=== PATIENT | male | born 1990 | race Caucasian/White ===

== ENCOUNTER 2019-05-20 07:55 | Emergency (ER) | payer SELFPAY ==
[2019-05-20] MEDS ORDERED: NA CHLORIDE 0.9% 1,000 ML ONE (08:17)
[2019-05-20 08:27] LABS: Absolute Lymphocytes (CBC) 2.4 K/uL (0.7-4.9); Basophils % 0.3 % (0-1.3); Hematocrit 47.7 % (39.6-49.0); Lymphocytes % 26.1 % (15.3-44.8); MPV 9.3 fL (7.6-11.3); RBC Red Blood Cell Count 5.72 M/uL (4.33-5.43)
[2019-05-20 08:43] LABS: ALT/SGPT 23 U/L (12-78); AST/SGOT 19 U/L (15-37); Albumin 4.3 g/dL (3.4-5.0); Alkaline Phosphatase 65 U/L (45-117); BUN Blood Urea Nitrogen 11 mg/dL (7-18); Bicarbonate 27 mmol/L (21-32); Bilirubin Direct 0.2 mg/dL (0-0.2); Bilirubin Total 0.6 mg/dL (0.2-1.0); Glucose Level 99 mg/dL (74-106); Potassium 3.3 mmol/L (3.5-5.1); Protein, Total 7.8 g/dL (6.4-8.2); Sodium Level 138 mmol/L (136-145)
--- NOTE | 2019-05-20 08:53 | EDPHYS ---
Physician Documentation [facility] Name: Yaya Hess Age: 29 yrs Sex: Male : 1990 Arrival Date: 05/20/2019 Time: 07:56 Bed 8 Private MD: PIETRO Physician Juliocesar Carson HPI: 05/19 08:08 This 29 yrs old Male presents to ER via EMS with complaints of anxoius, sabas palpitations after meth use, iv method. 08:08 The patient presents with a history of heart racing. Context: The symptoms occur after sabas iv meth use. Onset: The symptoms/episode began/occurred just prior to arrival, this morning. Duration: The patient or guardian reports a single episode, that is still ongoing, but improving. Modifying factors: The symptoms are aggravated by nothing. The symptoms are alleviated by nothing. hx of meth use iv every 3 months for 3 days at a time. Onset: The symptoms/episode began/occurred. Modifying factors: The symptoms are alleviated by nothing, the symptoms are aggravated by nothing. Associated signs and symptoms: Pertinent positives: agitation, palpitations, tingling. Historical: - Allergies: 08:05 No Known Allergies; jl7 - Home Meds: 08:05 Kratom [Active]; jl7 - PMHx: 08:05 None; jl7 - PSHx: 08:05 Left Ankle Pin Placement; jl7 - Immunization history:: Adult Immunizations not up to date. - Social history:: Smoking status: Patient reports the use of cigarette tobacco products, cigars, Patient reports use of chewing tobacco. Patient uses street drugs, marijuana, Methamphetamine (Meth) IV drugs, amphetamines. - Family history:: not pertinent. ROS: 08:08 Constitutional: Negative for fever, chills, and weight loss, Eyes: Negative for injury, sabas pain, redness, and discharge, ENT: Negative for injury, pain, and discharge, Neck: Negative for injury, pain, and swelling, Respiratory: Negative for shortness of breath, cough, wheezing, and pleuritic chest pain, Abdomen/GI: Negative for abdominal pain, nausea, vomiting, diarrhea, and constipation, Back: Negative for injury and pain, : Negative for injury, bleeding, discharge, and swelling, MS/Extremity: Negative for injury and deformity, Skin: Negative for injury, rash, and discoloration, Psych: Negative for depression, anxiety, suicide ideation, homicidal ideation, and hallucinations, Allergy/Immunology: Negative for hives, rash, and allergies, Endocrine: Negative for neck swelling, polydipsia, polyuria, polyphagia, and marked weight changes. 08:08 Cardiovascular: Positive for palpitations. 08:08 Neuro: Positive for tingling, of the right arm, left arm, right leg and left leg. Exam: 08:08 Constitutional: This is a well developed, well nourished patient who is awake, alert, sabas and in no acute distress. Head/Face: Normocephalic, atraumatic. Eyes: Pupils equal round and reactive to light, extra-ocular motions intact. Lids and lashes normal. Conjunctiva and sclera are non-icteric and not injected. Cornea within normal limits. Periorbital areas with no swelling, redness, or edema. ENT: Nares patent. No nasal discharge, no septal abnormalities noted. Tympanic membranes are normal and external auditory canals are clear. Oropharynx with no redness, swelling, or masses, exudates, or evidence of obstruction, uvula midline. Mucous membranes moist. Neck: Trachea midline, no thyromegaly or masses palpated, and no cervical lymphadenopathy. Supple, full range of motion without nuchal rigidity, or vertebral point tenderness. No Meningismus. Chest/axilla: Normal chest wall appearance and motion. Nontender with no deformity. No lesions are appreciated. Respiratory: Lungs have equal breath sounds bilaterally, clear to auscultation and percussion. No rales, rhonchi or wheezes noted. No increased work of breathing, no retractions or nasal flaring. Abdomen/GI: Soft, non-tender, with normal bowel sounds. No distension or tympany. No guarding or rebound. No evidence of tenderness throughout. Back: No spinal tenderness. No costovertebral tenderness. Full range of motion. Skin: Warm, dry with normal turgor. Normal color with no rashes, no lesions, and no evidence of cellulitis. MS/ Extremity: Pulses equal, no cyanosis. Neurovascular intact. Full, normal range of motion. Neuro: Awake and alert, GCS 15, oriented to person, place, time, and situation. Cranial nerves II-XII grossly intact. Motor strength 5/5 in all extremities. Sensory grossly intact. Cerebellar exam normal. Normal gait. Psych: Awake, alert, with orientation to person, place and time. Behavior, mood, and affect are within normal limits. 08:08 Cardiovascular: Rate: tachycardic, Rhythm: regular, Pulses: Pulses are 4+ in bilateral radial, brachial, femoral, popliteal, posterior tibial and and dorsalis pedis arteries.. Edema: is not appreciated, JVD: is not appreciated. 08:15 ECG was reviewed by the Attending Physician. sabas Vital Signs: 07:59 BP 150 / 90; Pulse 103; Resp 23 S; Temp 98.3(O); Pulse Ox 97% on R/A; Weight 81.65 kg jl7 (R); Height 5 ft. 10 in. (177.80 cm) (R); 08:57 BP 142 / 94; Pulse 91; Resp 19; Pulse Ox 97% ; jl7 07:59 Body Mass Index 25.83 (81.65 kg, 177.80 cm) jl7 NIH Stroke Scale Scores: 08:15 NIHSS Score: 0 sabas MDM: 08:07 Patient medically screened. sabas 08:12 Data reviewed: vital signs, nurses notes, lab test result(s), EKG. sabas 08:22 Differential diagnosis: arrythmia, dehydration. Differential Diagnosis altered mental sabas status. Differential diagnosis: cardiac arrhythmia, generalized weakness, hypovolemia. ED course: long hx iv meth abuse, today took 1/2 gm , possible too much per patient. heart racing and very anxious. 08:27 ED course: explained the importance of getting help and staying sober. 05/19 08:07 Order name: Acetaminophen; Complete Time: 08:50 sabas 05/19 08:07 Order name: Basic Metabolic Panel; Complete Time: 08:50 sabas 05/19 08:07 Order name: CBC with Diff; Complete Time: 08:34 05/19 08:07 Order name: ETOH Level; Complete Time: 08:34 05/19 08:07 Order name: Hepatic Function; Complete Time: 08:50 05/19 08:07 Order name: Salicylate; Complete Time: 08:44 05/19 08:07 Order name: Urine Drug Screen 05/19 08:07 Order name: EKG; Complete Time: 08:08 sabas 05/19 08:07 Order name: EKG - Nurse/Tech; Complete Time: 08:21 [facility] 05/19 08:07 Order name: IV Saline Lock; Complete Time: 08:21 [facility] 05/19 08:07 Order name: Labs collected and sent; Complete Time: 08: [facility] 05/19 09:00 Order name: Urine Dipstick--Ancillary (enter results) 05/19 08:07 Order name: Urine Dipstick-Ancillary (obtain specimen); Complete Time: 08:55 [facility] 05/19 08:51 Order name: PO challenge: juice; Complete Time: 08:59 [facility] EC: Rate is 94 beats/min. Rhythm is regular. QRS [place] is Normal. SD interval is normal. QRS sabas interval is normal. QT interval is normal. No Q waves. T waves are Normal. No ST changes noted. Administered Medications: 08:20 Drug: NS 0.9% 1000 ml Route: IV; Rate: 1 bolus; Site: right antecubital; jl7 09:26 Follow up: IV Status: Completed infusion iw 08:58 Drug: Potassium Effervescent Tablet 25 mEq Route: PO; iw 09:27 Follow up: Response: No adverse reaction iw Disposition: 05/20/19 08:52 Discharged to Home. Impression: Anxiety disorder, unspecified, Hypokalemia, Palpitations, Abuse of non-psychoactive substances. - Condition is Stable. - Discharge Instructions: Potassium Content of Foods, Palpitations, Substance Use Disorder, Stimulant Use Disorder-Methamphetamines, Palpitations, [id number], Generalized Anxiety Disorder, Hypokalemia. - Medication Reconciliation Form, Thank You Letter, Antibiotic Education, Prescription Opioid Use, Work release form form. - Follow up: Private Physician; When: 2 - 3 days; Reason: Recheck today's complaints, Continuance of care, Re-evaluation by your physician. Follow up: Eduardo Concepcion MD; When: 2 - 3 days; Reason: Recheck today's complaints, Re-evaluation by your physician. Follow up: Riaz Jasso MD; When: 2 - 3 days; Reason: Recheck today's complaints, Re-evaluation by your physician. - Problem is new. - Symptoms have improved. NIH Stroke Scale - NIH Stroke Score Date: 05/20/2019 Time: 08:15 Total Score = 0 1a. Level of Consciousness (LOC) - 0(Alert) 1b. Level of Consciousness (LOC) (Year \T\ Age) - 0(Both) 1c. LOC Commands (Open \T\ Closes Eyes/Bureau Director) - 0(Both) 2. Best Gaze (Lateral Gaze Paresis) - 0(Normal) 3. Visual Field Loss - 0(No visual loss) 4. Facial Palsy - 0(Normal) 5a. Left Arm: Motor (10-second hold) - 0(No drift) 5b. Right Arm: Motor (10-second hold) - 0(No drift) 6a. Left Leg: Motor (5-second hold - always test supine) - 0(No drift) 6b. Right Leg: Motor (5-second hold - always test supine) - 0(No drift) 7. Limb Ataxia (finger/nose \T\ heel/espino - test with eyes open) - 0(Absent) 8. Sensory Loss (pinprick arms/legs/face) - 0(Normal) 9. Best Language: Aphasia (description/naming/reading) - 0(No aphasia) 10. Dysarthria (speech clarity - read or repeat words) - 0(Normal) 11. Extinction and Inattention (visual/tactile/auditory/spatial/personal) - 0(No abnormality) Initials: [facility] Signatures: Dispatcher [employer] EDMS Juliocesar Carson MD MD cha Williams, Irene, RN RN iw Leal, Jahala, RN RN jl7 Corrections: (The following items were deleted from the chart) 08:59 08:52 05/20/2019 08:52 Discharged to Home. Impression: Anxiety disorder, sabas unspecified; Hypokalemia; Palpitations. Condition is Stable. Forms are Medication Reconciliation Form, Thank You Letter, Antibiotic Education, Prescription Opioid Use. Follow up: Private Physician; When: 2 - 3 days; Reason: Recheck today's complaints, Continuance of care, Re-evaluation by your physician. Follow up: Riaz Jasso; When: 2 - 3 days; Reason: Recheck today's complaints, Re-evaluation by your physician. Problem is new. Symptoms have improved. [facility] 09:28 08:59 05/20/2019 08:52 Discharged to Home. Impression: Anxiety disorder, iw unspecified; Hypokalemia; Palpitations; Abuse of non-psychoactive substances. Condition is Stable. Discharge Instructions: Potassium Content of Foods, Palpitations, Palpitations, [id number], Generalized Anxiety Disorder, Hypokalemia. Forms are Medication Reconciliation Form, Thank You Letter, Antibiotic Education, Prescription Opioid Use. Follow up: Private Physician; When: 2 - 3 days; Reason: Recheck today's complaints, Continuance of care, Re-evaluation by your physician. Follow up: Riaz Jasso; When: 2 - 3 days; Reason: Recheck today's complaints, Re-evaluation by your physician. Problem is new. Symptoms have improved. sabas
--- NOTE | 2019-05-20 08:53 | ER ---
Nurse's Notes [facility] Name: Yaya Hess Age: 29 yrs Sex: Male : 1990 Arrival Date: 05/20/2019 Time: 07:56 Bed 8 Private MD: Diagnosis: Anxiety disorder, unspecified;Hypokalemia;Palpitations;Abuse of non-psychoactive substances Presentation: 05/19 07:59 Chief complaint: EMS states: Pt reports he's been up on a 3 days binge of using meth jl7 IV, last used at 12 am last night and he feels like he used too much at that time, reports anxiety and SOB. Coronavirus screen: Proceed with normal triage. Patient denies a cough. Patient reports shortness of breath or difficulty breathing. Patient denies measured and/or subjective temperature greater than 100.4F prior to today's visit. Patient denies travel on a cruise ship or to a country the [facility] currently lists as an affected area. Patient denies contact with known and/or suspected case of COVID-19. Ebola Screen: No symptoms or risks identified at this time. Initial Sepsis Screen: Does the patient meet any 2 criteria? No. Patient's initial sepsis screen is negative. Does the patient have a suspected source of infection? No. Patient's initial sepsis screen is negative. Risk Assessment: Do you want to hurt yourself or someone else? Patient reports no desire to harm self or others. Onset of symptoms was May 20, 2019. Care prior to arrival: BP 158/97; HR 102; O2 100%; Temp 98.3. 07:59 Method Of Arrival: EMS: [facility] 07:59 Acuity: NOE 3 jl7 Triage Assessment: 08:05 General: Appears in no apparent distress. uncomfortable, Behavior is cooperative, jl7 anxious. Pain: Denies pain. Neuro: Level of Consciousness is awake, alert, obeys commands, Oriented to person, place, time, situation. Cardiovascular: Patient's skin is warm and dry. Respiratory: Airway is patent Respiratory effort is even, unlabored, Respiratory pattern is regular, symmetrical. Derm: Skin is pink, warm \T\ dry. Historical: - Allergies: 08:05 No Known Allergies; jl7 - Home Meds: 08:05 Kratom [Active]; jl7 - PMHx: 08:05 None; 7 - PSHx: 08:05 Left Ankle Pin Placement; jl7 - Immunization history:: Adult Immunizations not up to date. - Social history:: Smoking status: Patient reports the use of cigarette tobacco products, cigars, Patient reports use of chewing tobacco. Patient uses street drugs, marijuana, Methamphetamine (Meth) IV drugs, amphetamines. - Family history:: not pertinent. Screenin:22 Abuse screen: Denies threats or abuse. Denies injuries from another. Nutritional [facility] screening: No deficits noted. Tuberculosis screening: No symptoms or risk factors identified. Fall Risk IV access (20 points). Total [place] Fall Scale indicates No Risk (0-24 pts). Assessment: 08:22 General: See triage assessment. [facility] 08:45 Reassessment: Pt will be discharged once fluids are done infusing. 7 08:58 Reassessment: Patient appears in no apparent distress at this time. Patient and/or iw family updated on plan of care and expected duration. Pain level reassessed. Patient is alert, oriented x 3, equal unlabored respirations, skin warm/dry/pink. Patient states feeling better. Patient states symptoms have improved. Vital Signs: 07:59 BP 150 / 90; Pulse 103; Resp 23 S; Temp 98.3(O); Pulse Ox 97% on R/A; Weight 81.65 kg 7 (R); Height 5 ft. 10 in. (177.80 cm) (R); 08:57 BP 142 / 94; Pulse 91; Resp 19; Pulse Ox 97% ; 7 07:59 Body Mass Index 25.83 (81.65 kg, 177.80 cm) [facility] NIH Stroke Scale Scores: 08:15 NIHSS Score: 0 [facility] ED Course: 07:56 Patient arrived in ED. 07:59 Phani Maxwell, [place] is Primary Nurse. [facility] 08:04 Triage completed. [facility] 08:05 Arm band placed on right wrist. [facility] 08:07 Juliocesar Carson MD is Attending Physician. [facility] 08:15 Initial lab(s) drawn, by ia, sent to lab. Inserted saline lock: 20 gauge in right iw antecubital area, using aseptic technique. Blood collected. 08:22 Patient has correct armband on for positive identification. Bed in low position. Call [facility] light in reach. Side rails up X 1. school bus monitor on. Pulse ox on. NIBP on. 08:30 EKG done, by ED staff, reviewed by Juliocesar Carson MD. jl7 08:51 Eduardo Concepcion MD is Referral Physician. sabas 08:51 Referral Physician role handed off by Eduardo Concepcion MD sabas 08:52 Riaz Jasso MD is Referral Physician. sabas 08:56 Urine collected: clean catch specimen, clear. jl7 09:25 No provider procedures requiring assistance completed. IV discontinued, intact, iw Pressure dressing applied. Administered Medications: 08:20 Drug: NS 0.9% 1000 ml Route: IV; Rate: 1 bolus; Site: right antecubital; jl7 09:26 Follow up: IV Status: Completed infusion iw 08:58 Drug: Potassium Effervescent Tablet 25 mEq Route: PO; iw 09:27 Follow up: Response: No adverse reaction Outcome: 08:52 Discharge ordered by MD. [facility] 09:25 Discharged to home ambulatory. 09:25 Condition: good 09:25 Discharge instructions given to patient, Instructed on follow up and referral plans. Demonstrated understanding of instructions. 09:28 Patient left the ED. NIH Stroke Scale - NIH Stroke Score Date: 05/20/2019 Time: 08:15 Total Score = 0 1a. Level of Consciousness (LOC) - 0(Alert) 1b. Level of Consciousness (LOC) (Year \T\ Age) - 0(Both) 1c. LOC Commands (Open \T\ Closes Eyes/Press Tender [employer] Goods) - 0(Both) 2. Best Gaze (Lateral Gaze Paresis) - 0(Normal) 3. Visual Field Loss - 0(No visual loss) 4. Facial Palsy - 0(Normal) 5a. Left Arm: Motor (10-second hold) - 0(No drift) 5b. Right Arm: Motor (10-second hold) - 0(No drift) 6a. Left Leg: Motor (5-second hold - always test supine) - 0(No drift) 6b. Right Leg: Motor (5-second hold - always test supine) - 0(No drift) 7. Limb Ataxia (finger/nose \T\ heel/espino - test with eyes open) - 0(Absent) 8. Sensory Loss (pinprick arms/legs/face) - 0(Normal) 9. Best Language: Aphasia (description/naming/reading) - 0(No aphasia) 10. Dysarthria (speech clarity - read or repeat words) - 0(Normal) 11. Extinction and Inattention (visual/tactile/auditory/spatial/personal) - 0(No abnormality) Initials: sabas Signatures: Juliocesar Carson MD MD cha Williams, Irene, RN RN iw Phani Maxwell RN RN jl7
[2019-05-20] MEDS ORDERED: POTASSIUM 25 MEQ EFFERV TAB ONE (08:59)
[2019-05-20 09:23] LABS: Barbiturates NEGATIVE (NEGATIVE); Benzodiazepines NEGATIVE (NEGATIVE); Cocaine NEGATIVE (NEGATIVE); METHAMPHETAM POSITIVE (NEGATIVE); Methadone NEGATIVE (NEGATIVE); Opiates NEGATIVE (NEGATIVE); Phencyclidine NEGATIVE (NEGATIVE); THC Cannibis POSITIVE (NEGATIVE)
[2019-05-20 09:36] VITALS: TEMP 98.3; O2SAT 97
[2019-05-20 09:38] VITALS: BP 142/94
[2019-05-20 11:04] LABS: Urine Blood NEGATIVE (NEG); Urine Glucose NEGATIVE (NEG); Urine Protein NEGATIVE (NEG); Urine pH 8.5 (5.0-7.0)
--- NOTE | 2019-05-20 11:30 | EKG ---
Test Date: 2019-05-20 Test Time: 08:14:27 Geospatial Extractor Analysis: DANIEL MEASUREMENT RESULTS: Intervals: Rate: 94 [place]: 130 QRSD: 100 QT: 358 QTc: 447 [place]: P: 73 [place]: 130 QRS: 103 T: 53 INTERPRETIVE STATEMENTS: Normal sinus rhythm Rightward axis Borderline ECG No previous ECG available for comparison Electronically Signed On 05-20-19 11:29:37 CDT by Vadim Pérez
== END 2019-05-20 09:28 | disposition home or self-care (01) ==
LOC: ER 07:55
DX: F41.9 Anxiety disorder, unspecified (principal); F55.8 Abuse of other non-psychoactive substances; E87.6 Hypokalemia; F17.220 Nicotine dependence, chewing tobacco, uncomplicated
CPT/HCPCS: 36415; 80048; 80076; 80307; 80320; 80329; 81003; 85025; 93005; 96360; 99284; J7030